=== PATIENT | female | born 1985 | race Caucasian/White ===

== ENCOUNTER 2019-02-10 20:48 | Emergency (ER) | payer OTHER ==
[2019-02-10] MEDS ORDERED: KETOROLAC TROMETHAMINE 30 MG/1 ML VIAL IVPUSH ONE (20:59)
[2019-02-10] MEDS ORDERED: morphine CARPU-JECT 4 MG/1 ML DISP.SYRIN IVPUSH ONE (20:59)
[2019-02-10] MEDS ORDERED: ONDANSETRON 4 MG/2 ML VIAL IVPB ONE (20:59)
[2019-02-10] MEDS ORDERED: SODIUM CHLORIDE 1,000 ML IV ONE (20:59)
[2019-02-10] MEDS ORDERED: ONDANSETRON 4 MG/2 ML VIAL ONE (21:03)
[2019-02-10] MEDS ORDERED: KETOROLAC TROMETHAMINE 30 MG/1 ML VIAL ONE (21:03)
[2019-02-10] MEDS ORDERED: morphine SULFATE 4 MG/ML VIAL ONE (21:03)
[2019-02-10 21:06] VITALS: BP 114/77; PULSE 73; TEMP 98.5; BMI 27.3
[2019-02-10 21:25] LABS: BASO % 0.4 % (0-2.0); EOS % 0.6 % (0-4.5); HEMOGLOBIN 13.1 GM/dl (10.7-15.3); LYMPH % 20.4 % (8-40); MCH 27.9 pg (25.7-33.7); MCHC 32.6 g/dl (32.0-36.0); MEAN CELL VOLUME 85.5 fl (80-96); MEAN PLT VOLUME 8.1 fl (7.5-11.1); MONO % 4.5 % (3.8-10.2); NEUT % 74.1 % (42.8-82.8); PLATELET COUNT 342 K/MM3 (134-434); RBC 4.68 M/mm3 (3.60-5.2); RDW 12.5 % (11.6-15.6); WHITE BLOOD COUNT 13.3 K/mm3 (4.0-10.8)
[2019-02-10 21:30] LABS: EPITHELIAL CELLS MODERATE /hpf
[2019-02-10 21:35] LABS: ALBUMIN 4.5 g/dl (3.4-5.0); BILIRUBIN,TOTAL 0.5 mg/dl (0.2-1); CALCIUM 9.3 mg/dl (8.5-10); CREATININE 0.8 mg/dl (0.55-1.3); POTASSIUM 3.7 mmol/L (3.5-5.1); TOT PROT 7.3 g/dl (6.4-8.2)
--- NOTE | 2019-02-10 22:28 | PDOC ---
Documentation entered by April Yo SCRIBE, acting as scribe for Malka Delong MD. Malka Delong MD: This documentation has been prepared by the Sanaz ghosh Andrys, SCRIBE, under my direction and personally reviewed by me in its entirety. I confirm that the documentation accurately reflects all work, treatment, procedures, and medical decision making performed by me. History of Present Illness - General Chief Complaint: Pain, Acute Stated Complaint: LOWER ABDOMINAL PAIN RADIATING INTO BACK Time Seen by Provider: 02/10/19 20:50 History Source: Patient Exam Limitations: No Limitations - History of Present Illness Initial Comments: 02/10/19 21:08 The patient is a 33 year old female with a significant past medical history of kidney stones and migraines who presents to the ED with several days of back pain. Patient reports several days of back pain with radiation to the right flank and right lower quadrant that worsened today. Patient states her symptoms feel similar to her history of kidney stones. She also reports nausea associated with present symptoms. Denies fever or chills. Denies any other symptoms. PAST MEDICAL HISTORY: no significant history PAST SURGICAL HISTORY: no significant history FAMILY HISTORY: no pertinent history SOCIAL HISTORY: Pt lives with family and is employed. MEDICATIONS: reviewed ALLERGIES: As per nursing notes General: No fevers or chills, no weakness, no weight loss HEENT: No change in vision. No sore throat,. No ear pain Cardiovascular: No chest pain or shortness of breath Respiratory:No cough, or wheezing. Gastrointestinal: no nausea, vomiting, diarrhea or constipation, No rectal bleeding Genitourinary: + back pain, flank pain, RLQ pain. No dysuria, hematuria, or frequency Musculoskeletal: No joint or muscle swelling Neurologic: No headache, vertigo, dizziness or loss of consciousness Psychiatric: nor depression Skin: No rashes or easy bruising Endocrine: no increased thirst or abnormal weight change Allergic: no skin or latex allergy All other systems reviewed and normal General: + moderate distress, appears uncomfortable. Well-nourished well- developed individual. HEENT: Throat: Normal, tonsils normal, no erythema or exudate Neck: Supple, no meningeal signs, no lymphadenopathy Eyes::Pupils equal reactive and round, extraocular motion intact Chest: Nontender to palpation Cardiac: S1-S2 normal, regular rate and rhythm, no murmurs rubs or gallops Respiratory: Lungs clear to auscultation bilateral Abdomen: + Tenderness on palpation right flank and right lower quadrant of abdomen. Soft, nondistended, normal bowel sounds. Extremities: Warm, dry, no cyanosis, clubbing, or edema Skin: No rashes Neuro: Alert and oriented x3, nonfocal exam, grossly intact, normal gait Psych: Normal mood and affect 02/10/19 22:27 Assessment and plan: This is a 33-year-old female with history of renal colic comes in any of right flank pain radiating T to her right lower quadrant. Patient's symptoms are consistent with renal colic. Patient's has some associated nausea. Workup initiated including CBC, comp, CAT scan to rule out stone. Patient given IV fluids and pain medication. Patient's CAT scan shows a 6 mm stone at the right UVJ with some hydronephrosis and hydroureter. Was some mild perinephric stranding however patient's urinalysis was negative for a urinary tract infection as it only had 0-2 white cells and a few bacteria started on antibiotics at this time Is comfortable at time of discharge however prescriptions for Percocet and Zofran were sent to her pharmacy. Patient discharged will follow-up with her urologist. 02/10/19 23:48 Past History - Past Medical History Allergies/Adverse Reactions: Allergies Allergy/AdvReac Type Severity Reaction Status Date / Time No Known Allergies Allergy Verified 02/10/19 20:49 Home Medications: Ambulatory Orders Ondansetron [Zofran *Odt*] 8 mg SL TID #15 od.tablet 02/10/19 Oxycodone HCl/Acetaminophen [Percocet 5-325 mg Tablet] 1 - 2 tab PO Q4H #20 tablet MDD 8 02/10/19 COPD: No Other medical history: KIDNEY STONES,MIGRAINES - Suicide/Smoking/Psychosocial Hx Smoking History: Never smoked Have you smoked in the past 12 months: No Information on smoking cessation initiated: No Hx Alcohol Use: Yes (OCCAS.) Drug/Substance Use Hx: No *Physical Exam - Vital Signs Last Vital Signs Temp Pulse Resp BP Pulse Ox 98.5 F 73 20 114/77 100 02/10/19 20:52 02/10/19 20:52 02/10/19 20:52 02/10/19 20:52 02/10/19 20:52 ED Treatment Course - LABORATORY CBC & Chemistry Diagram: 02/10/19 21:01 02/10/19 21:01 - ADDITIONAL ORDERS Additional order review: Laboratory Results 02/10/19 02/10/19 02/10/19 21:01 21:01 21:01 Sodium 138 Potassium 3.7 Chloride 103 Carbon Dioxide 26 Anion Gap 9 BUN 14.0 Creatinine 0.8 Est GFR (CKD-EPI)AfAm 113.06 Est GFR (CKD-EPI)NonAf 97.55 Random Glucose 124 H Calcium 9.3 Total Bilirubin 0.5 AST 18 ALT 12 L Alkaline Phosphatase 51 Total Protein 7.3 Albumin 4.5 Urine Color Yellow Urine Appearance Slightly Urine pH 5.5 Urine Protein Trace Urine Glucose (UA) Negative Urine Ketones Negative Urine Blood 3+ H Urine Nitrite Negative Urine Bilirubin Negative Urine Urobilinogen 0.2 Ur Leukocyte Esterase Negative Urine RBC 60-80 Urine WBC 0-2 Ur Transition Epith Cell Moderate Urine Bacteria Few Urine HCG, Qual Negative 02/10/19 21:01 RBC 4.68 MCV 85.5 MCHC 32.6 RDW 12.5 MPV 8.1 Neutrophils % 74.1 Lymphocytes % 20.4 Monocytes % 4.5 Eosinophils % 0.6 Basophils % 0.4 - RADIOLOGY Radiology Studies Ordered: Category Date Time Status SPIRAL- RENAL-STONE CT [CT] Stat CT Scan 02/10/19 20:59 Taken - Medications Given in the ED: ED Medications Discontinued Medications Generic Name Dose Route Start Last Admin Trade Name Freq PRN Reason Stop Dose Admin Sodium Chloride 1,000 mls @ 1,000 mls/hr 02/10/19 20:59 02/10/19 21:11 Normal Saline - IV 02/10/19 21:58 1,000 mls/hr .Q1H ONE Administration Ketorolac Tromethamine 30 mg 02/10/19 20:59 02/10/19 21:12 Toradol Injection - IVPUSH 02/10/19 21:00 30 mg ONCE ONE Administration Morphine Sulfate 4 mg 02/10/19 20:59 02/10/19 21:12 Morphine Injection - IVPUSH 02/10/19 21:00 4 mg ONCE ONE Administration Ondansetron HCl 8 mg 02/10/19 20:59 02/10/19 21:11 Zofran Injection IVPB 02/10/19 21:00 8 mg ONCE ONE Administration *DC/Admit/Observation/Transfer Diagnosis at time of Disposition: Kidney stone - Discharge Dispostion Disposition: HOME Condition at time of disposition: Stable Decision to Admit order: No - Prescriptions Prescriptions: Ondansetron [Zofran *Odt*] 8 mg SL TID #15 od.tablet Oxycodone HCl/Acetaminophen [Percocet 5-325 mg Tablet] 1 - 2 tab PO Q4H #20 tablet MDD 8 - Referrals - Patient Instructions Additional Instructions: For the pain take ibuprofen or Tylenol if you need something stronger I sent a prescription to your pharmacy for Percocet you can take 1-2 tablets every 4-6 hours as needed for the pain For nausea take Zofran 1 tablet as often as every 6 hours Stay well-hydrated Return to the emergency department immediately with ANY new, persistent or worsening symptoms. Continue any medications as previously prescribed by your physician. You should follow up with your primary doctor as soon as possible regarding today's emergency department visit. . Please make sure your doctor reviews the results of your emergency evaluation. Thank you for coming to the Emergency Department today for your care. It was a pleasure to see you today. Please note that your evaluation is INCOMPLETE until you follow-up with your doctor. - Post Discharge Activity
== END 2019-02-11 00:30 | disposition home or self-care (01) ==
LOC: FER 20:48
PROC: 3E0333Z Introduction of Anti-inflammatory into Peripheral Vein, Percutaneous Approach (ICD-10-PCS; principal; 2019-02-10)
PROC: 3E033NZ Introduction of Analgesics, Hypnotics, Sedatives into Peripheral Vein, Percutaneous Approach (ICD-10-PCS; 2019-02-10)
PROC: 3E033GC Introduction of Other Therapeutic Substance into Peripheral Vein, Percutaneous Approach (ICD-10-PCS; 2019-02-10)
PROC: 3E0337Z Introduction of Electrolytic and Water Balance Substance into Peripheral Vein, Percutaneous Approach (ICD-10-PCS; 2019-02-10)
DX: N20.0 Calculus of kidney (principal)
CPT/HCPCS: 36415; 74176-TC; 80053; 81003; 81015; 84703; 85025; 87086; 99282-25; J7030